=== PATIENT | male | born 1970 | race Caucasian/White ===

== ENCOUNTER 2020-11-23 02:43 | Emergency (ER) | payer OTHER | END 2020-11-23 05:00 | disposition home or self-care (01) | LOC: ER1 02:43 | DX: U07.1 COVID-19 (principal); E11.9 Type 2 diabetes mellitus without complications; I10 Essential (primary) hypertension | CPT/HCPCS: 99283; U0002 ==

== ENCOUNTER 2020-11-25 17:59 | Emergency (ER) | payer OTHER ==
[~2020-11-25] VITALS: Ht 180.3 cm; Wt 199.6 kg
[2020-11-25 18:55] LABS: HEMOGLOBIN 13.2 gm/dl (14.0-17.5); RED BLOOD COUNT 4.52 M/UL (4.20-5.50); WHITE BLOOD COUNT 3.3 K/UL (4.5-11.0)
[2020-11-25 19:02] LABS: BUN/CREATININE RATIO 15 (0-10)
[2020-11-25] MEDS ORDERED: PROAIR HFA8.5 GM INH (20:37)
[2020-11-25] MEDS ORDERED: IPRAT-ALBUT 0.5-3 ML INH (20:37)
[2020-11-26] MEDS ORDERED: ZITHROMAX250 MG PO (11:11)
[2020-11-26 12:54] LABS: ACINETOBACTER BAUMANNII Not Detected (Negative); CANDIDA ALBICANS Not Detected (Negative); CANDIDA KRUSEI Not Detected (Negative); CANDIDA TROPICALIS Not Detected (Negative); ENTEROCOCCUS Not Detected (Negative); ESCHERICHIA COLI Not Detected (Negative); HAEMOPHILUS INFLUENZAE Not Detected (Negative); KLEBSIELLA OXYTOCA Not Detected (Negative); KLEBSIELLA PNEUMONIAE Not Detected (Negative); KPC-CARBAPENEM-RESISTANCE GENE Not Detected (Negative); PROTEUS Not Detected (Negative); PSEUDOMONAS AERUGINOSA Not Detected (Negative); SERRATIA MARCESANS Not Detected (Negative); STAPHYLOCOCCUS AUREUS Not Detected (Negative); STREP AGALACTIAE (GROUP B) Not Detected (Negative); STREP PYOGENES (GROUP A) Not Detected (Negative); STREPTOCOCCUS Not Detected (Negative); mecA (METHICILLIN RESIST GENE Not Detected (Negative); vanA/B (VANCOMYCIN RESIST GENE Not Detected (Negative)
[2020-11-26 14:10] LABS: STAPHYLOCOCCUS DETECTED (Negative)
== END 2020-11-26 00:15 | disposition home or self-care (01) ==
LOC: ER1 17:59
PROVIDERS: Physician Assistant
DX: Z23 Encounter for immunization (principal); U07.1 COVID-19; J12.82 Pneumonia due to coronavirus disease 2019; E11.65 Type 2 diabetes mellitus with hyperglycemia; I10 Essential (primary) hypertension; K21.9 Gastro-esophageal reflux disease without esophagitis
CPT/HCPCS: 71045; 80053; 82550; 82553; 82962; 83605; 83690; 83735; 83874; 83880; 84484; 85025; 85610; 85730; 87040; 87077; 87150; 87186; 94640; 96374; 96376; 99285; J7030; M0243

== ENCOUNTER 2020-11-26 13:42 | Inpatient (IN) | payer OTHER ==
[~2020-11-26] VITALS: Ht 180.3 cm; Wt 199.6 kg
[~2020-11-26 13:42] MED LIST: IPRAT-ALBUT 0.5-3 ML INH; PROAIR HFA8.5 GM INH; ZITHROMAX250 MG PO
[2020-11-26 15:04] LABS: RED BLOOD COUNT 4.48 M/UL (4.20-5.50)
[2020-11-26 15:05] LABS: WHITE BLOOD COUNT 6.6 K/UL (4.5-11.0)
[2020-11-26 15:28] LABS: BUN/CREATININE RATIO 14 (0-10)
[2020-11-28] MEDS ORDERED: VITAMIN C 500500 MG PO (00:02)
[2020-11-28] MEDS ORDERED: VITAMIN D31250 MCG PO (00:03)
[2020-11-28] MEDS ORDERED: FENOFIBRATE145 MG PO (00:05)
[2020-11-28] MEDS ORDERED: NOVOLOG 10100 UNITS/ INJ (00:12)
[2020-11-28] MEDS ORDERED: LOSARTAN-HCTZ1 EAC1 PO (00:12)
[2020-11-28] MEDS ORDERED: ASPIRIN EC81 MG PO (00:12)
[2020-11-28] MEDS ORDERED: ISOSORBIDE MONO10 MG PO (00:13)
[2020-11-28] MEDS ORDERED: AMLODIPINE BESYL5 MG PO (00:13)
[2020-11-28] MEDS ORDERED: DULOXETINE HCL60 MG PO (00:14)
[2020-11-28] MEDS ORDERED: SERTRALINE HCL100 MG PO (00:14)
[2020-11-28] MEDS ORDERED: OMEPRAZOLE20 MG PO (00:15)
== END 2020-11-27 02:25 | disposition left against medical advice (07) | DRG 871 ==
LOC: ER1 13:42 → CDU 16:35
PROVIDERS: Emergency Medicine; ADMIT Internal Medicine
PROC: 8E0ZXY6 Isolation (ICD-10-PCS; principal; 2020-11-26)
PROC: 3E0333Z Introduction of Anti-inflammatory into Peripheral Vein, Percutaneous Approach (ICD-10-PCS; 2020-11-26)
PROC: XW033E5 Introduction of Remdesivir Anti-infective into Peripheral Vein, Percutaneous Approach, New Technology Group 5 (ICD-10-PCS; 2020-11-26)
DX: A41.89 Other specified sepsis (principal); U07.1 COVID-19; J96.01 Acute respiratory failure with hypoxia; J12.82 Pneumonia due to coronavirus disease 2019; E87.2 Acidosis; E87.1 Hypo-osmolality and hyponatremia; N17.9 Acute kidney failure, unspecified; D69.6 Thrombocytopenia, unspecified; R65.20 Severe sepsis without septic shock; E87.8 Other disorders of electrolyte and fluid balance, not elsewhere classified; I12.9 Hypertensive chronic kidney disease with stage 1 through stage 4 chronic kidney disease, or unspecified chronic kidney disease; N18.30 Chronic kidney disease, stage 3 unspecified; D63.1 Anemia in chronic kidney disease; E11.22 Type 2 diabetes mellitus with diabetic chronic kidney disease; E78.5 Hyperlipidemia, unspecified; E66.01 Morbid (severe) obesity due to excess calories; Z83.3 Family history of diabetes mellitus; Z79.4 Long term (current) use of insulin
CPT/HCPCS: 36600; 71045; 80053; 82550; 82553; 82803; 82962; 83605; 83690; 83735; 83874; 83880; 84484; 85025; 85379; 85610; 85730; 87040; 87077; 87150; 87186; 93005; 94640; 94760; 96374; 96376; 99285; J0696; J1650; J1885; J3370; J7030; J7070; M0243

== ENCOUNTER 2020-11-27 13:32 | Inpatient (IN) | payer OTHER ==
[~2020-11-27] VITALS: Ht 177.8 cm; Wt 192.6 kg
[2020-11-27 14:57] LABS: RED BLOOD COUNT 4.43 M/UL (4.20-5.50); WHITE BLOOD COUNT 5.7 K/UL (4.5-11.0)
[2020-11-28] MEDS ORDERED: VITAMIN C 500500 MG PO (00:02)
[2020-11-28] MEDS ORDERED: VITAMIN D31250 MCG PO (00:03)
[2020-11-28] MEDS ORDERED: FENOFIBRATE145 MG PO (00:05)
[2020-11-28] MEDS ORDERED: LOSARTAN-HCTZ1 EAC1 PO (00:12)
[2020-11-28] MEDS ORDERED: NOVOLOG 10100 UNITS/ INJ (00:12)
[2020-11-28] MEDS ORDERED: ASPIRIN EC81 MG PO (00:12)
[2020-11-28] MEDS ORDERED: AMLODIPINE BESYL5 MG PO (00:13)
[2020-11-28] MEDS ORDERED: ISOSORBIDE MONO10 MG PO (00:13)
[2020-11-28] MEDS ORDERED: DULOXETINE HCL60 MG PO (00:14)
[2020-11-28] MEDS ORDERED: SERTRALINE HCL100 MG PO (00:14)
[2020-11-28] MEDS ORDERED: OMEPRAZOLE20 MG PO (00:15)
[2020-11-28 04:33] LABS: HEMOGLOBIN 13.3 gm/dl (14.0-17.5); RED BLOOD COUNT 4.59 M/UL (4.20-5.50); WHITE BLOOD COUNT 5.9 K/UL (4.5-11.0)
--- NOTE | 2020-11-28 05:13 | NUR ---
11/28 2127 [facility]SB[facility] 520, DR COOPER AWARE, ORDERS PLACED. 2256 [facility] 483, 2200 INSULIN GIVEN. 11/28 8 [facility] 515, DR COOPER AWARE, ORDERS PLACED. 0130 [facility] 535, DR COOPER AWARE, ORDERS PLACED.
[2020-11-29] MEDS ORDERED: LOPRESSOR 50 MG50 MG PO (00:04)
[2020-11-29] MEDS ORDERED: MONTELUKAST SOD10 MG PO (00:14)
[2020-11-29] MEDS ORDERED: PRAVASTATIN SOD40 MG PO (00:15)
[2020-11-29 05:02] LABS: HEMOGLOBIN 12.7 gm/dl (14.0-17.5); RED BLOOD COUNT 4.24 M/UL (4.20-5.50)
[2020-11-29 05:08] LABS: WHITE BLOOD COUNT 12.3 K/UL (4.5-11.0)
[2020-11-29] MEDS ORDERED: VITAMIN C 500500 MG PO (11:10)
== END 2020-11-29 14:56 | disposition expired | DRG 871 ==
LOC: ER1 13:32 → CDU 17:08 → 2 EAST 21:03
PROVIDERS: Emergency Medicine; Internal Medicine Pulmonary Disease; ADMIT Internal Medicine
PROC: 3E0333Z Introduction of Anti-inflammatory into Peripheral Vein, Percutaneous Approach (ICD-10-PCS; principal; 2020-11-27)
PROC: 5A09457 Assistance with Respiratory Ventilation, 24-96 Consecutive Hours, Continuous Positive Airway Pressure (ICD-10-PCS; 2020-11-27)
PROC: 8E0ZXY6 Isolation (ICD-10-PCS; 2020-11-27)
PROC: XW033E5 Introduction of Remdesivir Anti-infective into Peripheral Vein, Percutaneous Approach, New Technology Group 5 (ICD-10-PCS; 2020-11-28)
PROC: XW033G5 Introduction of Sarilumab into Peripheral Vein, Percutaneous Approach, New Technology Group 5 (ICD-10-PCS; 2020-11-28)
PROC: 0BH18EZ Insertion of Endotracheal Airway into Trachea, Via Natural or Artificial Opening Endoscopic (ICD-10-PCS; 2020-11-28)
PROC: 5A1945Z Respiratory Ventilation, 24-96 Consecutive Hours (ICD-10-PCS; 2020-11-28)
PROC: XW13325 Transfusion of Convalescent Plasma (Nonautologous) into Peripheral Vein, Percutaneous Approach, New Technology Group 5 (ICD-10-PCS; 2020-11-28)
PROC: 3E033XZ Introduction of Vasopressor into Peripheral Vein, Percutaneous Approach (ICD-10-PCS; 2020-11-28)
PROC: B24BZZZ Ultrasonography of Heart with Aorta (ICD-10-PCS; 2020-11-29)
DX: A41.9 Sepsis, unspecified organism (principal); U07.1 COVID-19; J12.82 Pneumonia due to coronavirus disease 2019; J80 Acute respiratory distress syndrome; R65.21 Severe sepsis with septic shock; Z68.44 Body mass index [BMI] 60.0-69.9, adult; E66.2 Morbid (severe) obesity with alveolar hypoventilation; N17.9 Acute kidney failure, unspecified; Z66 Do not resuscitate; Z51.5 Encounter for palliative care; I12.9 Hypertensive chronic kidney disease with stage 1 through stage 4 chronic kidney disease, or unspecified chronic kidney disease; N18.9 Chronic kidney disease, unspecified; I34.0 Nonrheumatic mitral (valve) insufficiency; D69.6 Thrombocytopenia, unspecified; E87.5 Hyperkalemia; E83.42 Hypomagnesemia; E11.22 Type 2 diabetes mellitus with diabetic chronic kidney disease; E78.5 Hyperlipidemia, unspecified; E11.65 Type 2 diabetes mellitus with hyperglycemia; Z79.4 Long term (current) use of insulin; Z83.3 Family history of diabetes mellitus; Z79.82 Long term (current) use of aspirin
CPT/HCPCS: ECHO; 31500; 36415; 36600; 71045; 80053; 80202; 82728; 82803; 82947; 82962; 83036; 83615; 83690; 83735; 83880; 84100; 85025; 85027; 85379; 85384; 85610; 85730; 86140; 86900; 86901; 86927; 87040; 87081; 93005; 93306; 94003; 94640; 94660; 94760; 99285; C1751; C9113; J0456; J0696; J1100; J1650; J2250; J2270; J2704; J3010; J3370; J7030; J7040; J7070; Q9957